=== PATIENT | female | born 1995 | race Caucasian/White ===

== ENCOUNTER 2018-04-11 23:56 | Emergency (ER) | payer OTHER ==
[~2018-04-11] VITALS: Ht 172.7 cm; Wt 78.5 kg
== END 2018-04-12 02:09 | disposition home or self-care (01) ==
LOC: ED 23:56
DX: B34.9 Viral infection, unspecified (principal); Z88.1 Allergy status to other antibiotic agents
CPT/HCPCS: 71046; 80053; 81001; 85025; 87081; 87880; 96360; 99283; J7030

== ENCOUNTER 2020-12-31 20:18 | Emergency (ER) | payer OTHER ==
[~2020-12-31] VITALS: Ht 172.7 cm; Wt 86.2 kg
[2020-12-31] MEDS ORDERED: HYDROCODON-ACE1 EA10 PO (22:37)
[2020-12-31] MEDS ORDERED: CYCLOBENZAPRINE10 MG PO (22:57)
== END 2020-12-31 22:58 | disposition home or self-care (01) ==
LOC: ED 20:18
DX: N83.201 Unspecified ovarian cyst, right side (principal); Z88.1 Allergy status to other antibiotic agents
CPT/HCPCS: 74177; 80053; 81001; 84703; 85025; 99284-25; J2270; J2405; Q9967

== ENCOUNTER 2021-01-03 02:53 | Emergency (ER) | payer OTHER ==
[~2021-01-03] VITALS: Ht 172.7 cm; Wt 88.0 kg
[~2021-01-03 02:53] MED LIST: CYCLOBENZAPRINE10 MG PO; HYDROCODON-ACE1 EA10 PO
--- OUTSIDE RECORDS SUMMARY | 2021-01-03 02:56 | XMS ---
PreManage Notification: DORIS ROSA [employer] Events No recent Security Events currently on file CRITERIA MET - [facility] - 2 Visits in 30 Days CARE PROVIDERS There are no care providers on record at this time. [facility] has no Care Guidelines for this patient. [place] [facility] COUNT (12 MO.) [facility] NOTE: Visits indicate total known visits. ED/C VISIT TRACKING (12 MO.) [facility] COMPLAINT: - STOMACH PAIN, PREASURE ON THE STOMACH 12/31/2020 20:[address] [facility] TYPE: Emergency COMPLAINT: - LOWER ABDOMINAL AND SIDE PAIN DIAGNOSES: - Unspecified ovarian cyst, right side - Lower abdominal pain, unspecified - Unspecified abdominal pain - Allergy status to other antibiotic agents INPATIENT VISIT TRACKING (12 MO.) No inpatient visits to display in this time frame [id number]
== END 2021-01-03 05:20 | disposition home or self-care (01) ==
LOC: ED 02:53
DX: N83.201 Unspecified ovarian cyst, right side (principal); K59.00 Constipation, unspecified; Z88.1 Allergy status to other antibiotic agents
CPT/HCPCS: 74177; 80053; 81001; 83690; 85025; 96375; 99284-25; J1170; J1885; J2405; Q9967

== ENCOUNTER 2022-12-14 11:30 | Emergency (ER) | payer OTHER ==
[~2022-12-14] VITALS: Ht 172.7 cm; Wt 88.0 kg
[2022-12-14] MEDS ORDERED: AMOXICILLIN500 MG PO (12:00)
== END 2022-12-14 13:49 | disposition home or self-care (01) ==
LOC: ED 11:30
DX: R55 Syncope and collapse (principal); N94.6 Dysmenorrhea, unspecified; Z88.1 Allergy status to other antibiotic agents
CPT/HCPCS: 36415; 80053; 81001; 84703; 85025; 96360; 99284-25; J7030